=== PATIENT | male | born 1955 | race Caucasian/White ===

== ENCOUNTER 2021-06-24 09:24 | Outpatient (CLI) | payer OTHER | END 2021-06-24 09:35 | disposition home or self-care (01) | LOC: RAD 09:24 | DX: H25.10 Age-related nuclear cataract, unspecified eye (principal) ==

== ENCOUNTER 2021-06-29 16:52 | Inpatient (IN) | payer OTHER ==
[2021-06-29] MEDS ORDERED: GLIMEPIRIDE1 M1 (20:01)
[2021-06-29] MEDS ORDERED: GEMFIBROZIL600 MG (20:02)
[2021-06-29] MEDS ORDERED: ENALAPRIL MALEAT5 MG (20:02)
[2021-06-29] MEDS ORDERED: NASAL MIST126 ML (20:02)
== END 2021-06-30 04:29 | disposition left against medical advice (07) | DRG 683 ==
LOC: MEDJ 16:52
PROVIDERS: ADMIT Internal Medicine; ATTEND Internal Medicine
DX: N17.8 Other acute kidney failure (principal); I12.0 Hypertensive chronic kidney disease with stage 5 chronic kidney disease or end stage renal disease; I13.11 Hypertensive heart and chronic kidney disease without heart failure, with stage 5 chronic kidney disease, or end stage renal disease; D63.8 Anemia in other chronic diseases classified elsewhere; D69.49 Other primary thrombocytopenia; E11.69 Type 2 diabetes mellitus with other specified complication; E11.22 Type 2 diabetes mellitus with diabetic chronic kidney disease; I11.9 Hypertensive heart disease without heart failure; E87.5 Hyperkalemia; N18.5 Chronic kidney disease, stage 5; Z79.4 Long term (current) use of insulin; D63.1 Anemia in chronic kidney disease

== ENCOUNTER 2021-07-20 08:03 | Outpatient (CLI) | payer OTHER ==
[~2021-07-20 08:03] MED LIST: ENALAPRIL MALEAT5 MG; GEMFIBROZIL600 MG; GLIMEPIRIDE1 M1; NASAL MIST126 ML
== END 2021-07-20 08:08 | disposition home or self-care (01) ==
LOC: SONOGRAMA 08:03
PROVIDERS: ATTEND Specialist/Technologist, Other Nephrology
DX: R10.9 Unspecified abdominal pain (principal); R31.9 Hematuria, unspecified; N18.30 Chronic kidney disease, stage 3 unspecified

== ENCOUNTER 2021-08-12 07:06 | Outpatient (CLI) | payer OTHER | END 2021-08-12 07:07 | disposition home or self-care (01) | LOC: NUCLEAR 07:06 | PROVIDERS: ATTEND Internal Medicine Hematology & Oncology | DX: C80.0 Disseminated malignant neoplasm, unspecified (principal); R97.0 Elevated carcinoembryonic antigen [CEA]; R63.4 Abnormal weight loss; N18.5 Chronic kidney disease, stage 5; F17.210 Nicotine dependence, cigarettes, uncomplicated | CPT/HCPCS: 78812; A9552 ==

== ENCOUNTER 2021-09-13 17:38 | Inpatient (IN) | payer OTHER ==
[~2021-09-13] VITALS: Ht 152.4 cm; Wt 67.6 kg
[2021-09-13] MEDS ORDERED: CALPHRON667 MG (19:12)
[2021-09-13] MEDS ORDERED: INTEGRA PLUS C1 EACH (19:13)
[2021-09-13] MEDS ORDERED: AMLODIPINE 2.5 MG (19:14)
[2021-09-13] MEDS ORDERED: TAMS0.4C (19:14)
[2021-09-13] MEDS ORDERED: PROSCAR5 MG (19:15)
--- NOTE | 2021-09-13 19:16 | NUR ---
PTE SE RECIBE POR ANEMIA Y DEBILIDAD REFIERE PARAMEDICO Y FAMILIAR.
--- NOTE | 2021-09-13 21:48 | NUR ---
SE REALIZA CANALIZACION DE VENA A PACIENTE Y MUESTRAS DE CUATE POR ORDEN MEDICA.
--- NOTE | 2021-09-14 05:05 | NUR ---
SE REALIZA ASEO PERIANAL,PTE EVACUADO,SE CAMBIA PANAL Y ROPA DE CAMA.
--- NOTE | 2021-09-14 07:32 | NUR ---
PTE ALERTA Y ORIENTADA POR MAE ESFERAS CON BUEN PATRON RESPIRATORIO. SE ENCUENTRA EN LINDSAY BAJA, BARANDAS ELEVADAS Y FRENOS AJUSTADOS. TIENE CANALIZACION PATENTE GERARDO DE EDEMA Y ERITEMA CON IV FLUID ESTABLECIDO POR ORDEN MEDICA. PENDIENTE CONSULTA CON .
[2021-09-16] MEDS ORDERED: NORVASC2.5 MG (16:31)
[2021-09-16] MEDS ORDERED: DORZOLAMIDE HCL10 ML (16:32)
== END 2021-10-29 10:52 | disposition home or self-care (01) | DRG 682 ==
LOC: ER 17:38 → MEDI 09-14 15:44 → ICU 09-14 15:44 → SEC-K 09-14 15:44 → SURH 09-14 15:44 → MEDI 09-14 15:53 → SEC-K 09-14 16:09 → MEDI 09-14 18:46 → ICU 09-16 22:20 → SURH 10-06 17:49
PROVIDERS: ADMIT Internal Medicine; ATTEND Internal Medicine
PROC: 0BH17EZ Insertion of Endotracheal Airway into Trachea, Via Natural or Artificial Opening (ICD-10-PCS; principal; 2021-09-16)
PROC: 5A1955Z Respiratory Ventilation, Greater than 96 Consecutive Hours (ICD-10-PCS; 2021-09-16)
PROC: 4A12X4Z Monitoring of Cardiac Electrical Activity, External Approach (ICD-10-PCS; 2021-09-16)
PROC: B24BYZZ Ultrasonography of Heart with Aorta using Other Contrast (ICD-10-PCS; 2021-09-17)
PROC: 02HV33Z Insertion of Infusion Device into Superior Vena Cava, Percutaneous Approach (ICD-10-PCS; 2021-09-19)
PROC: 30243N1 Transfusion of Nonautologous Red Blood Cells into Central Vein, Percutaneous Approach (ICD-10-PCS; 2021-09-20)
PROC: 02H633Z Insertion of Infusion Device into Right Atrium, Percutaneous Approach (ICD-10-PCS; 2021-09-20)
PROC: 5A1D70Z Performance of Urinary Filtration, Intermittent, Less than 6 Hours Per Day (ICD-10-PCS; 2021-09-21)
PROC: 5A1D70Z Performance of Urinary Filtration, Intermittent, Less than 6 Hours Per Day (ICD-10-PCS; 2021-09-23)
PROC: 5A1D70Z Performance of Urinary Filtration, Intermittent, Less than 6 Hours Per Day (ICD-10-PCS; 2021-09-26)
PROC: 5A1D70Z Performance of Urinary Filtration, Intermittent, Less than 6 Hours Per Day (ICD-10-PCS; 2021-09-28)
PROC: 5A1D70Z Performance of Urinary Filtration, Intermittent, Less than 6 Hours Per Day (ICD-10-PCS; 2021-09-30)
PROC: 5A0945A Assistance with Respiratory Ventilation, 24-96 Consecutive Hours, High Flow/Velocity Cannula (ICD-10-PCS; 2021-10-01)
PROC: 5A1D70Z Performance of Urinary Filtration, Intermittent, Less than 6 Hours Per Day (ICD-10-PCS; 2021-10-03)
PROC: 5A1D70Z Performance of Urinary Filtration, Intermittent, Less than 6 Hours Per Day (ICD-10-PCS; 2021-10-05)
PROC: 5A1D70Z Performance of Urinary Filtration, Intermittent, Less than 6 Hours Per Day (ICD-10-PCS; 2021-10-07)
PROC: B54PZZZ Ultrasonography of Bilateral Upper Extremity Veins (ICD-10-PCS; 2021-10-11)
PROC: 02H633Z Insertion of Infusion Device into Right Atrium, Percutaneous Approach (ICD-10-PCS; 2021-10-12)
PROC: 5A1D70Z Performance of Urinary Filtration, Intermittent, Less than 6 Hours Per Day (ICD-10-PCS; 2021-10-13)
PROC: 5A1D70Z Performance of Urinary Filtration, Intermittent, Less than 6 Hours Per Day (ICD-10-PCS; 2021-10-17)
PROC: 5A1D70Z Performance of Urinary Filtration, Intermittent, Less than 6 Hours Per Day (ICD-10-PCS; 2021-10-19)
PROC: 5A1D70Z Performance of Urinary Filtration, Intermittent, Less than 6 Hours Per Day (ICD-10-PCS; 2021-10-22)
PROC: 5A1D70Z Performance of Urinary Filtration, Intermittent, Less than 6 Hours Per Day (ICD-10-PCS; 2021-10-24)
PROC: 5A1D70Z Performance of Urinary Filtration, Intermittent, Less than 6 Hours Per Day (ICD-10-PCS; 2021-10-26)
PROC: 5A1D70Z Performance of Urinary Filtration, Intermittent, Less than 6 Hours Per Day (ICD-10-PCS; 2021-10-28)
DX: N17.9 Acute kidney failure, unspecified (principal); J96.02 Acute respiratory failure with hypercapnia; I21.A1 Myocardial infarction type 2; A41.51 Sepsis due to Escherichia coli [E. coli]; R65.20 Severe sepsis without septic shock; B37.1 Pulmonary candidiasis; J10.08 Influenza due to other identified influenza virus with other specified pneumonia; J15.1 Pneumonia due to Pseudomonas; N39.0 Urinary tract infection, site not specified; T83.511A Infection and inflammatory reaction due to indwelling urethral catheter, initial encounter; N13.8 Other obstructive and reflux uropathy; Z16.29 Resistance to other single specified antibiotic; E87.4 Mixed disorder of acid-base balance; I12.0 Hypertensive chronic kidney disease with stage 5 chronic kidney disease or end stage renal disease; N18.6 End stage renal disease; E11.22 Type 2 diabetes mellitus with diabetic chronic kidney disease; D63.1 Anemia in chronic kidney disease; N40.1 Benign prostatic hyperplasia with lower urinary tract symptoms; E88.09 Other disorders of plasma-protein metabolism, not elsewhere classified; B96.20 Unspecified Escherichia coli [E. coli] as the cause of diseases classified elsewhere; B96.5 Pseudomonas (aeruginosa) (mallei) (pseudomallei) as the cause of diseases classified elsewhere; Z96.0 Presence of urogenital implants; Z79.84 Long term (current) use of oral hypoglycemic drugs

== ENCOUNTER 2021-11-19 09:53 | Emergency (ER) | payer OTHER ==
[~2021-11-19] VITALS: Ht 162.6 cm; Wt 56.7 kg
[~2021-11-19 09:53] MED LIST changes: +AMLODIPINE 2.5 MG; +CALPHRON667 MG; +DORZOLAMIDE HCL10 ML; +INTEGRA PLUS C1 EACH; +NORVASC2.5 MG; +PROSCAR5 MG; +TAMS0.4C
[2021-11-19] MEDS ORDERED: HYDRALAZINE HC100 MG (10:13)
[2021-11-19] MEDS ORDERED: LASIX40 MG (10:13)
[2021-11-19] MEDS ORDERED: TOPROL XL100 M1 (10:13)
[2021-11-19] MEDS ORDERED: CALPHRON667 MG (10:14)
[2021-11-19] MEDS ORDERED: ADALAT CC30 MG (10:14)
[2021-11-19] MEDS ORDERED: PEPCID AC20 MG (10:15)
[2021-11-19] MEDS ORDERED: ABANEU-SL TABL1 EACH (10:15)
[2021-11-19] MEDS ORDERED: ABATINEX680 MG (10:15)
== END 2021-11-19 17:00 | disposition home or self-care (01) ==
LOC: ER 09:53
DX: N30.90 Cystitis, unspecified without hematuria (principal); B96.5 Pseudomonas (aeruginosa) (mallei) (pseudomallei) as the cause of diseases classified elsewhere; E11.9 Type 2 diabetes mellitus without complications; Z79.84 Long term (current) use of oral hypoglycemic drugs; I10 Essential (primary) hypertension

== ENCOUNTER 2022-01-02 20:05 | Emergency (ER) | payer OTHER ==
[~2022-01-02] VITALS: Ht 172.7 cm; Wt 59.0 kg
[~2022-01-02 20:05] MED LIST changes: +ABANEU-SL TABL1 EACH; +ABATINEX680 MG; +ADALAT CC30 MG; +HYDRALAZINE HC100 MG; +LASIX40 MG; +PEPCID AC20 MG; +TOPROL XL100 M1
== END 2022-01-03 | disposition home or self-care (01) ==
LOC: ER 20:05
DX: T83.011A Breakdown (mechanical) of indwelling urethral catheter, initial encounter (principal); I10 Essential (primary) hypertension; N40.0 Benign prostatic hyperplasia without lower urinary tract symptoms

== ENCOUNTER 2022-04-02 21:56 | Inpatient (IN) | payer OTHER ==
[~2022-04-02] VITALS: Ht 167.6 cm; Wt 52.2 kg
[2022-04-04] MEDS ORDERED: TAMSULOSIN HCL0.4 MG (10:56)
== END 2022-04-10 17:23 | disposition home or self-care (01) | DRG 689 ==
LOC: ER 21:56 → SEC-K 04-03 11:15 → MEDJ 04-03 11:15
PROVIDERS: ADMIT Internal Medicine; ATTEND Internal Medicine
PROC: BW41ZZZ Ultrasonography of Abdomen and Pelvis (ICD-10-PCS; principal; 2022-04-03)
PROC: 5A1D70Z Performance of Urinary Filtration, Intermittent, Less than 6 Hours Per Day (ICD-10-PCS; 2022-04-03)
PROC: 5A1D70Z Performance of Urinary Filtration, Intermittent, Less than 6 Hours Per Day (ICD-10-PCS; 2022-04-07)
PROC: 5A1D70Z Performance of Urinary Filtration, Intermittent, Less than 6 Hours Per Day (ICD-10-PCS; 2022-04-10)
DX: N39.0 Urinary tract infection, site not specified (principal); N18.6 End stage renal disease; I13.11 Hypertensive heart and chronic kidney disease without heart failure, with stage 5 chronic kidney disease, or end stage renal disease; N17.9 Acute kidney failure, unspecified; B96.89 Other specified bacterial agents as the cause of diseases classified elsewhere; E11.22 Type 2 diabetes mellitus with diabetic chronic kidney disease; Z99.2 Dependence on renal dialysis; Z79.4 Long term (current) use of insulin; Z20.822 Contact with and (suspected) exposure to COVID-19; Z74.01 Bed confinement status; T83.011A Breakdown (mechanical) of indwelling urethral catheter, initial encounter; N40.1 Benign prostatic hyperplasia with lower urinary tract symptoms; N13.9 Obstructive and reflux uropathy, unspecified

== ENCOUNTER 2022-05-17 18:47 | Emergency (ER) | payer OTHER ==
[~2022-05-17] VITALS: Ht 177.8 cm; Wt 81.6 kg
[~2022-05-17 18:47] MED LIST changes: +TAMSULOSIN HCL0.4 MG
[2022-05-17] MEDS ORDERED: METFORMIN HCL500 M3 PO (18:59)
[2022-05-17] MEDS ORDERED: LEVOFLOXACIN750 MG PO (21:29)
[2022-05-17] MEDS ORDERED: BACTRIM DS TAB1 EACH PO (21:32)
== END 2022-05-17 22:44 | disposition home or self-care (01) ==
LOC: ER 18:47
DX: T83.098A Other mechanical complication of other urinary catheter, initial encounter (principal)

== ENCOUNTER 2022-08-20 07:45 | Emergency (ER) | payer OTHER ==
[~2022-08-20] VITALS: Ht 167.6 cm; Wt 54.4 kg
[~2022-08-20 07:45] MED LIST changes: +BACTRIM DS TAB1 EACH PO; +LEVOFLOXACIN750 MG PO; +METFORMIN HCL500 M3 PO
== END 2022-08-20 13:50 | disposition home or self-care (01) ==
LOC: ER 07:45
DX: N18.6 End stage renal disease (principal); I10 Essential (primary) hypertension; Z99.2 Dependence on renal dialysis

== ENCOUNTER 2023-04-16 21:47 | Inpatient (IN) | payer OTHER ==
[~2023-04-16] VITALS: Ht 167.6 cm; Wt 59.0 kg
[2023-04-17 00:38] LABS: PH,URINE 7.5 (5.0-8.0); URINE APPEARANCE Cloudy; URINE BILIRRUBIN Negative (NEGATIVE); URINE BLOOD Negative; URINE COLOR Yellow; URINE GLUCOSE Negative (NEGATIVE); URINE LEUKOCYTE Large; URINE NITRATE Negative; URINE UROBILINOGEN 0.2 E.U./dl
[2023-04-17 00:41] LABS: URINE EPITHELIAL CELLS 7.1 uL (0.0-38.8); URINE RBC 40.2 uL (0.0-20.8); URINE WBC 420.3 uL (0.0-23.2)
[2023-04-17 00:53] LABS: HEMATOCRIT 27.7 % (39.0-48.0); MEAN CELL VOLUME 96.2 fL (80.0-100.00); MEAN CORPUSCULAR HGB CONC 34.8 g/dl (32.0-36.0); RED BLOOD COUNT 2.88 M/uL (4.00-6.00); RED CELL DISTRIBUTION WIDTH 15.7 % (11.5-14.5)
[2023-04-17 01:22] LABS: INR 0.98; PARTIAL THROMBOPLASTIN TIME 30.5 SECONDS (22.0-34.0); PROTHROMBIN TIME 10.3 SECONDS (9.0-11.5)
[2023-04-17 01:27] LABS: HEMOGLOBIN 9.7 g/dL (13-16.00); MEAN CORPUSCULAR HEMOGLOBIN 33.6 pg (27.00-32.0); PLATELET COUNT 95 K/uL (150-450)
[2023-04-17 01:39] LABS: ABG PH 7.446 (7.35-7.45); ABG PO2 84.1 mmHg (80-100); ABG pCO2 34.9 mmHg (35-45); BASE EXCESS 0 mmol/l; BICARBONATE 23.5 mmol/l (23-25); SaO2 96.7 %; Tco2 24.6 mmol/l; allen test SATISFACTORY; o2 21 %; puncture site RADIAL RIGHT
[2023-04-17 01:55] LABS: URINE BACTERIA > 9821.5 uL (0.0-1933); URINE PROTEIN 100 (NEGATIVE)
[2023-04-17 01:59] LABS: ALBUMIN 3.5 gm/dL (3.4-5.0); BILIRUBIN TOTAL 0.7 mg/dL (0.3-1.2); GLOBULINA 4.2 G/DL (2.4-3.5); TOTAL PROTEIN 7.7 gm/dL (6.4-8.2)
[2023-04-17 02:07] LABS: GFR 7.79
[2023-04-17 02:09] LABS: CREATININE SERUM 7.06 mg/dL (0.70-1.30)
[2023-04-17 02:10] LABS: POTASSIUM 5.99 mEq/L (3.5-5.1)
[2023-04-18 06:24] LABS: MEAN CELL VOLUME 96.6 fL (80.0-100.00); MEAN CORPUSCULAR HGB CONC 34.8 g/dl (32.0-36.0); RED BLOOD COUNT 2.59 M/uL (4.00-6.00)
[2023-04-18 06:26] LABS: MEAN CORPUSCULAR HEMOGLOBIN 33.5 pg (27.00-32.0)
[2023-04-18 06:27] LABS: HEMOGLOBIN 8.7 g/dL (13-16.00); PLATELET COUNT 78 K/uL (150-450)
[2023-04-18 07:04] LABS: ALBUMIN 3.1 gm/dL (3.4-5.0); BILIRUBIN TOTAL 0.71 mg/dL (0.3-1.2); CALCIUM 9.2 mg/dL (8.5-10.1); GLOBULINA 3.6 G/DL (2.4-3.5); MAGNESIUM 2.1 mg/dL (1.8-2.4); PHOSPHOROUS 4.1 mg/dL (2.5-4.9); POTASSIUM 5.25 mEq/L (3.5-5.1); TOTAL PROTEIN 6.7 gm/dL (6.4-8.2)
[2023-04-18 07:35] LABS: GFR 6.74
[2023-04-18 07:36] LABS: C-REACTIVE PROTEIN 23.4 MG/DL (0.00-0.29)
[2023-04-19 07:02] LABS: PH,URINE 5.5 (5.0-8.0); URINE APPEARANCE Cloudy; URINE BILIRRUBIN Negative (NEGATIVE); URINE BLOOD Small; URINE COLOR Yellow; URINE GLUCOSE Negative (NEGATIVE); URINE LEUKOCYTE Moderate; URINE NITRATE Negative
[2023-04-19 07:06] LABS: URINE BACTERIA 525.3 uL (0.0-1933); URINE EPITHELIAL CELLS 19.7 uL (0.0-38.8); URINE RBC 9.3 uL (0.0-20.8); URINE WBC 557.5 uL (0.0-23.2)
[2023-04-19 07:46] LABS: URINE PROTEIN 100 (NEGATIVE)
[2023-04-19 07:49] LABS: URINE YEAST NEGATIVE /hpf
[2023-04-20 07:02] LABS: ALBUMIN 2.6 gm/dL (3.4-5.0); BILIRUBIN TOTAL 0.42 mg/dL (0.3-1.2); GLOBULINA 3.4 G/DL (2.4-3.5); PHOSPHOROUS 5.1 mg/dL (2.5-4.9); POTASSIUM 3.6 mEq/L (3.5-5.1)
[2023-04-20 08:02] LABS: C-REACTIVE PROTEIN 8.54 MG/DL (0.00-0.29); GFR 7.34
[2023-04-20 08:03] LABS: CREATININE SERUM 7.43 mg/dL (0.70-1.30)
[2023-04-20 12:17] LABS: MEAN CORPUSCULAR HGB CONC 34.5 g/dl (32.0-36.0); RED BLOOD COUNT 2.42 M/uL (4.00-6.00); RED CELL DISTRIBUTION WIDTH 15.4 % (11.5-14.5)
[2023-04-20 13:01] LABS: HEMATOCRIT 22.9 % (39.0-48.0); HEMOGLOBIN 7.9 g/dL (13-16.00); MEAN CORPUSCULAR HEMOGLOBIN 32.6 pg (27.00-32.0)
[2023-04-20 13:02] LABS: PLATELET COUNT 84 K/uL (150-450)
[2023-04-21 12:26] LABS: HEMATOCRIT 27.4 % (39.0-48.0); MEAN CELL VOLUME 91.9 fL (80.0-100.00); MEAN CORPUSCULAR HGB CONC 34.8 g/dl (32.0-36.0); RED BLOOD COUNT 2.98 M/uL (4.00-6.00); RED CELL DISTRIBUTION WIDTH 16.1 % (11.5-14.5)
[2023-04-21 13:15] LABS: MEAN CORPUSCULAR HEMOGLOBIN 31.8 pg (27.00-32.0); PLATELET COUNT 72 K/uL (150-450)
[2023-04-21 13:16] LABS: HEMOGLOBIN 9.5 g/dL (13-16.00)
[2023-04-24 06:59] LABS: HEMATOCRIT 26.1 % (39.0-48.0); HEMOGLOBIN 9.1 g/dL (13-16.00); MEAN CELL VOLUME 92.7 fL (80.0-100.00); MEAN CORPUSCULAR HEMOGLOBIN 32.3 pg (27.00-32.0); MEAN CORPUSCULAR HGB CONC 34.8 g/dl (32.0-36.0); RED BLOOD COUNT 2.82 M/uL (4.00-6.00); RED CELL DISTRIBUTION WIDTH 16.2 % (11.5-14.5)
[2023-04-24 07:16] LABS: PLATELET COUNT 94 K/uL (150-450)
[2023-04-24 07:19] LABS: ALBUMIN 2.7 gm/dL (3.4-5.0); CALCIUM 7.8 mg/dL (8.5-10.1); GFR 10.01; PHOSPHOROUS 3.9 mg/dL (2.5-4.9); POTASSIUM 3.57 mEq/L (3.5-5.1)
[2023-04-24 08:09] LABS: CREATININE SERUM 5.68 mg/dL (0.70-1.30)
== END 2023-04-25 14:13 | disposition home or self-care (01) | DRG 689 ==
LOC: ER 21:47 → MEDJ 04-17 09:34 → SEC-K 04-17 09:34 → MEDJ 04-17 10:14
PROVIDERS: General Practice; Internal Medicine Infectious Disease; Specialist/Technologist, Other Nephrology; ADMIT Internal Medicine; ATTEND Internal Medicine
PROC: BW28ZZZ Computerized Tomography (CT Scan) of Head (ICD-10-PCS; 2023-04-16)
PROC: 5A1D70Z Performance of Urinary Filtration, Intermittent, Less than 6 Hours Per Day (ICD-10-PCS; principal; 2023-04-18)
PROC: 5A1D70Z Performance of Urinary Filtration, Intermittent, Less than 6 Hours Per Day (ICD-10-PCS; 2023-04-20)
PROC: BW21ZZZ Computerized Tomography (CT Scan) of Abdomen and Pelvis (ICD-10-PCS; 2023-04-20)
PROC: 30233N1 Transfusion of Nonautologous Red Blood Cells into Peripheral Vein, Percutaneous Approach (ICD-10-PCS; 2023-04-20)
PROC: 5A1D70Z Performance of Urinary Filtration, Intermittent, Less than 6 Hours Per Day (ICD-10-PCS; 2023-04-23)
PROC: 5A1D70Z Performance of Urinary Filtration, Intermittent, Less than 6 Hours Per Day (ICD-10-PCS; 2023-04-25)
DX: N39.0 Urinary tract infection, site not specified (principal); A41.9 Sepsis, unspecified organism; N18.6 End stage renal disease; I12.0 Hypertensive chronic kidney disease with stage 5 chronic kidney disease or end stage renal disease; T85.618A Breakdown (mechanical) of other specified internal prosthetic devices, implants and grafts, initial encounter; T82.7XXA Infection and inflammatory reaction due to other cardiac and vascular devices, implants and grafts, initial encounter; E11.22 Type 2 diabetes mellitus with diabetic chronic kidney disease; D64.9 Anemia, unspecified; B96.20 Unspecified Escherichia coli [E. coli] as the cause of diseases classified elsewhere; Z99.2 Dependence on renal dialysis; E88.09 Other disorders of plasma-protein metabolism, not elsewhere classified; E83.39 Other disorders of phosphorus metabolism; Z74.01 Bed confinement status; Y65.8 Other specified misadventures during surgical and medical care; T83.018A Breakdown (mechanical) of other urinary catheter, initial encounter; R53.81 Other malaise

== ENCOUNTER 2023-11-05 12:37 | Outpatient (CLI) | payer OTHER | END 2023-11-05 12:48 | disposition home or self-care (01) | LOC: TOM 12:37 | PROVIDERS: ATTEND Internal Medicine | DX: G40.89 Other seizures (principal) ==

== ENCOUNTER 2024-05-20 11:16 | Inpatient (IN) | payer OTHER ==
[~2024-05-20] VITALS: Ht 152.4 cm; Wt 61.7 kg
--- NOTE | 2024-05-20 11:31 | NUR ---
SE RECIBE MASCULINO ALERTA Y ORIENTADO X3 QUIEN REFIERE MALESTAR GENERAL Y FIEBRE DESDE BEA. PACIENTE REFERIDO POR DR EVA MONROY. SE MIDEN S/V Y SE UBICA.
[2024-05-20] MEDS ORDERED: ACETAMINOPHEN 500 MG GEL..CAP PO ONE ×3 (14:00→19:34)
--- NOTE | 2024-05-20 14:20 | NUR ---
SE ORIENTA A PACIENTE SOBRE ORDENES MEDICAS. SE COLECTAN MUESTRAS DE LABORATORIO BAJO MEDIDAS ASEPTICAS.
[2024-05-20 14:37] LABS: HEMATOCRIT 31.5 % (39.0-48.0); HEMOGLOBIN 10.7 g/dL (13-16.00); MEAN CELL VOLUME 97.8 fL (80.0-100.00); MEAN CORPUSCULAR HEMOGLOBIN 33.3 pg (27.00-32.0); RED BLOOD COUNT 3.22 M/uL (4.00-6.00); RED CELL DISTRIBUTION WIDTH 13.5 % (11.5-14.5)
[2024-05-20 15:05] LABS: PLATELET COUNT 92 K/uL (150-450)
[2024-05-20 15:15] LABS: URINE APPEARANCE Cloudy; URINE BILIRRUBIN Negative (NEGATIVE); URINE BLOOD Negative; URINE COLOR Yellow; URINE EPITHELIAL CELLS 57.7 uL (0.0-38.8); URINE GLUCOSE Negative (NEGATIVE); URINE KETONE Negative (NEGATIVE); URINE LEUKOCYTE Moderate; URINE NITRATE Negative; URINE UROBILINOGEN 0.2 E.U./dl; URINE WBC 287.9 uL (0.0-23.2)
[2024-05-20 15:19] LABS: ALBUMIN 3.4 gm/dL (3.4-5.0); BILIRUBIN TOTAL 0.54 mg/dL (0.3-1.2); CALCIUM 9.1 mg/dL (8.5-10.1); GFR 6.39; MAGNESIUM 2.5 mg/dL (1.8-2.4); POTASSIUM 5.12 mEq/L (3.5-5.1); TOTAL PROTEIN 7.4 gm/dL (6.4-8.2)
[2024-05-20 16:01] LABS: URINE CAST 0.73 uL (0.0-1.40); URINE CRYSTALS MANY /HPF; URINE PROTEIN 100 (NEGATIVE)
[2024-05-20 16:03] LABS: CREATININE SERUM 8.36 mg/dL (0.70-1.30)
[2024-05-20] MEDS ORDERED: VANCOMYCIN HCL 1,000 MG VIAL IV ONE (16:30)
[2024-05-20] MEDS ORDERED: GENTAMICIN SULFATE 40 MG/ML VIAL IV ONE (16:30)
[2024-05-20] MEDS ORDERED: SODIUM CHLORIDE 0.45 % 1,000 ML IV SCH (18:00)
[2024-05-20] MEDS ORDERED: ACETAMINOPHEN 500 MG GEL..CAP PO PRN (18:15)
[2024-05-20] MEDS ORDERED: NIFEDIPINE 30 MG TAB.SA.OSM PO ONE (18:15)
[2024-05-20] MEDS ORDERED: VANCOMYCIN HCL 1,000 MG VIAL ONE (19:07)
[2024-05-20] MEDS ORDERED: GENTAMICIN SULFATE 40 MG/ML VIAL ONE (19:07)
[2024-05-20 19:24] LABS: INR 0.99; PARTIAL THROMBOPLASTIN TIME 32.2 SECONDS (22.0-34.0); PROTHROMBIN TIME 10.8 SECONDS (9.0-11.5)
[2024-05-20 19:44] VITALS: BP 117/87; O2SAT 100
[2024-05-20] MEDS ORDERED: HEPARIN SODIUM,PORCINE 1,000 UNITS/ML VIAL SPEPROC ONE (22:30)
[2024-05-20] MEDS ORDERED: NICOTINE 21MG/24HR PATCH.TD24 TD ONE (23:45)
[2024-05-21 01:52] VITALS: BP 180/76
[2024-05-21 08:33] VITALS: BP 131/76
[2024-05-21 08:35] VITALS: BP 173/75
[2024-05-21] MEDS ORDERED: FUROsemide 40 MG TABLET PO SCH (09:00)
[2024-05-21] MEDS ORDERED: METOPROLOL SUCCINATE 50 MG TAB.SR.24H PO SCH (09:00)
[2024-05-21] MEDS ORDERED: LevETIRAcetam 500 MG TAB. PO SCH (09:00)
[2024-05-21] MEDS ORDERED: CEFTRIAXONE SODIUM 2,000 MG in 0.9 % SODIUM CHLORIDE 100 ML IV SCH (09:00)
[2024-05-21] MEDS ORDERED: FAMOtidine 20 MG TABLET PO SCH (09:00)
[2024-05-21] MEDS ORDERED: Calcium Acetate 667 MG CAP PO SCH (09:00)
[2024-05-21] MEDS ORDERED: TAMSULOSIN HCL 0.4 MG CAP PO SCH (09:00)
[2024-05-21] MEDS ORDERED: NIFEDIPINE 30 MG TAB.SA.OSM PO SCH (09:00)
[2024-05-21] MEDS ORDERED: HEPARIN SODIUM,PORCINE 1,000 UNITS/ML VIAL IV SCH (09:00)
[2024-05-21] MEDS ORDERED: AMINO ACIDS/PROTEIN HYDROLYS 30 ML BLIST.PACK PO SCH (13:00)
[2024-05-21] MEDS ORDERED: AMIKACIN SULFATE 250 MG/ML (500MG) VIAL IV ONE (14:30)
[2024-05-21] MEDS ORDERED: HEPARIN SODIUM,PORCINE 5,000 UNITS/ML VIAL ONE (17:20)
[2024-05-21 17:28] VITALS: BP 142/66
[2024-05-21] MEDS ORDERED: HEPARIN SODIUM,PORCINE 5,000 UNITS/ML VIAL IV NR (17:30)
[2024-05-21] MEDS ORDERED: DEXTROSE 50 % IN WATER 0.5 G/ML DISP.SYRIN IV PRN (17:45)
[2024-05-21] MEDS ORDERED: INSULIN LISPRO 1,000 UNIT/10 ML UNITS SUBCUTANEO PRN (17:45)
[2024-05-21] MEDS ORDERED: AMIKACIN SULFATE 250 MG/ML (500MG) VIAL IV NR (19:00)
[2024-05-21] MEDS ORDERED: LevETIRAcetam 500 MG TAB. PO ONE (19:22)
[2024-05-21] MEDS ORDERED: LevETIRAcetam 500 MG TAB. PO NR (19:30)
[2024-05-21] MEDS ORDERED: MEROPENEM 500 MG/VIAL VIAL IV SCH (21:00)
[2024-05-22 00:25] VITALS: BP 135/64; O2SAT 99
[2024-05-22 04:56] LABS: HEMATOCRIT 27.7 % (39.0-48.0); RED BLOOD COUNT 2.91 M/uL (4.00-6.00); RED CELL DISTRIBUTION WIDTH 13.5 % (11.5-14.5)
[2024-05-22 04:58] LABS: HEMOGLOBIN 9.9 g/dL (13-16.00); PLATELET COUNT 82 K/uL (150-450)
[2024-05-22 05:37] LABS: ALBUMIN 3.1 gm/dL (3.4-5.0); BILIRUBIN TOTAL 0.41 mg/dL (0.3-1.2); CALCIUM 8.5 mg/dL (8.5-10.1); GLOBULINA 3.7 G/DL (2.4-3.5); MAGNESIUM 2.1 mg/dL (1.8-2.4); PHOSPHOROUS 3.9 mg/dL (2.5-4.9); POTASSIUM 4.58 mEq/L (3.5-5.1); TOTAL PROTEIN 6.8 gm/dL (6.4-8.2)
[2024-05-22 06:40] LABS: GFR 10.79
[2024-05-22 06:40] LABS: URINE APPEARANCE Turbid; URINE BILIRRUBIN Negative (NEGATIVE); URINE BLOOD Large; URINE COLOR Orange; URINE GLUCOSE Negative (NEGATIVE); URINE KETONE Trace (NEGATIVE); URINE LEUKOCYTE Large; URINE NITRATE Negative; URINE UROBILINOGEN 0.2 E.U./dl
[2024-05-22 06:42] LABS: URINE BACTERIA 1679.2 uL (0.0-1933); URINE CAST 2.65 uL (0.0-1.40); URINE EPITHELIAL CELLS 7.4 uL (0.0-38.8); URINE RBC 573.9 uL (0.0-20.8); URINE WBC 3591.8 uL (0.0-23.2)
[2024-05-22 06:42] LABS: CREATININE SERUM 5.31 mg/dL (0.70-1.30)
[2024-05-22 06:59] LABS: URINE PROTEIN 300 (NEGATIVE)
[2024-05-22 07:00] LABS: URINE CRYSTALS FEW /HPF
[2024-05-22 08:59] VITALS: BP 143/66; O2SAT 99
[2024-05-22 17:10] VITALS: BP 140/64
[2024-05-23 00:24] VITALS: BP 110/65
[2024-05-23 09:11] VITALS: BP 137/62; O2SAT 96
[2024-05-23 11:17] LABS: PH,URINE 7.5 (5.0-8.0); URINE APPEARANCE Clear; URINE BILIRRUBIN Negative (NEGATIVE); URINE BLOOD Negative; URINE COLOR Yellow; URINE GLUCOSE Negative (NEGATIVE); URINE KETONE Negative (NEGATIVE); URINE LEUKOCYTE Small; URINE NITRATE Negative
[2024-05-23 11:21] LABS: URINE EPITHELIAL CELLS 5.2 uL (0.0-38.8); URINE RBC 4.4 uL (0.0-20.8)
[2024-05-23 11:24] LABS: URINE CAST 0.73 uL (0.0-1.40); URINE PROTEIN 100 (NEGATIVE)
[2024-05-23 16:48] VITALS: BP 161/75; O2SAT 99
[2024-05-23] MEDS ORDERED: LevETIRAcetam 500 MG TAB. PO SCH (17:00)
[2024-05-23] MEDS ORDERED: HEPARIN SODIUM,PORCINE 5,000 UNITS/ML VIAL ONE (20:40)
[2024-05-24 02:04] VITALS: BP 138/65
[2024-05-24 08:08] VITALS: BP 155/73
[2024-05-24 17:28] VITALS: BP 155/65; O2SAT 97
[2024-05-25 02:00] VITALS: BP 156/75
[2024-05-25 07:44] LABS: HEMATOCRIT 29.4 % (39.0-48.0); HEMOGLOBIN 10.1 g/dL (13-16.00); MEAN CELL VOLUME 97.4 fL (80.0-100.00); MEAN CORPUSCULAR HEMOGLOBIN 33.5 pg (27.00-32.0); MEAN CORPUSCULAR HGB CONC 34.4 g/dl (32.0-36.0); RED BLOOD COUNT 3.02 M/uL (4.00-6.00); RED CELL DISTRIBUTION WIDTH 13.1 % (11.5-14.5)
[2024-05-25 07:51] VITALS: BP 151/68
[2024-05-25 08:03] LABS: PLATELET COUNT 95 K/uL (150-450)
[2024-05-25 08:12] LABS: ALBUMIN 3.1 gm/dL (3.4-5.0); BILIRUBIN TOTAL 0.44 mg/dL (0.3-1.2); CALCIUM 8.9 mg/dL (8.5-10.1); GFR 7.74; GLOBULINA 3.6 G/DL (2.4-3.5); MAGNESIUM 2.6 mg/dL (1.8-2.4); POTASSIUM 4.83 mEq/L (3.5-5.1); TOTAL PROTEIN 6.7 gm/dL (6.4-8.2)
[2024-05-25 08:33] LABS: CREATININE SERUM 7.08 mg/dL (0.70-1.30)
[2024-05-25 16:41] VITALS: BP 167/75; O2SAT 99
[2024-05-25] MEDS ORDERED: EPOETIN ALFA-EPBX 10,000 UNIT/ML VIAL (Retacrit) SUBCUTANEO SCH (17:00)
[2024-05-26 02:05] VITALS: BP 127/59
[2024-05-26 08:44] VITALS: BP 188/86
[2024-05-26] MEDS ORDERED: HEPARIN SODIUM,PORCINE 5,000 UNITS/ML VIAL ONE (15:43)
[2024-05-26 16:22] VITALS: BP 147/88; O2SAT 98
[2024-05-26] MEDS ORDERED: AMIKACIN SULFATE 250 MG/ML (500MG) VIAL IV NR (19:00)
== END 2024-05-26 18:44 | disposition home or self-care (01) | DRG 689 ==
LOC: ER 11:16 → MEDJ 19:22 → SEC-K 19:22 → MEDJ 20:41 → MEDI 05-21 16:11
PROVIDERS: Emergency Medicine; General Practice; Internal Medicine Infectious Disease; ADMIT Internal Medicine; ATTEND Internal Medicine
DX: N39.0 Urinary tract infection, site not specified (principal); N18.6 End stage renal disease; D69.6 Thrombocytopenia, unspecified; I11.9 Hypertensive heart disease without heart failure; E11.22 Type 2 diabetes mellitus with diabetic chronic kidney disease; Z99.2 Dependence on renal dialysis; E78.5 Hyperlipidemia, unspecified; Z97.8 Presence of other specified devices; Z79.4 Long term (current) use of insulin

== ENCOUNTER 2024-07-04 18:37 | Emergency (ER) | payer OTHER ==
[~2024-07-04] VITALS: Ht 165.1 cm; Wt 68.0 kg
[2024-07-04] MEDS ORDERED: LEVALBUTEROL HCL 1.25 MG/3 ML SOLUTION IH ONE ×2 (19:30→21:28)
[2024-07-04 20:13] LABS: HEMATOCRIT 33.3 % (39.0-48.0); HEMOGLOBIN 11.2 g/dL (13-16.00); MEAN CELL VOLUME 96.1 fL (80.0-100.00); MEAN CORPUSCULAR HEMOGLOBIN 32.4 pg (27.00-32.0); MEAN CORPUSCULAR HGB CONC 33.7 g/dl (32.0-36.0); PLATELET COUNT 80 K/uL (150-450); RED BLOOD COUNT 3.46 M/uL (4.00-6.00); RED CELL DISTRIBUTION WIDTH 14.4 % (11.5-14.5)
[2024-07-04 20:27] LABS: INR 1.02; PARTIAL THROMBOPLASTIN TIME 32.8 SECONDS (22.0-34.0); PROTHROMBIN TIME 11.1 SECONDS (9.0-11.5)
[2024-07-04 20:35] LABS: ALBUMIN 3.5 gm/dL (3.4-5.0); BILIRUBIN TOTAL 0.55 mg/dL (0.3-1.2); CALCIUM 9.2 mg/dL (8.5-10.1); GFR 10.86; GLOBULINA 4.2 G/DL (2.4-3.5); POTASSIUM 4.59 mEq/L (3.5-5.1); TOTAL PROTEIN 7.7 gm/dL (6.4-8.2)
[2024-07-04 20:38] LABS: CREATININE SERUM 5.28 mg/dL (0.70-1.30)
[2024-07-04 22:05] LABS: PH,URINE >= 9.0 (5.0-8.0); URINE APPEARANCE Turbid; URINE BILIRRUBIN Negative (NEGATIVE); URINE BLOOD Negative; URINE COLOR Yellow; URINE GLUCOSE Negative (NEGATIVE); URINE KETONE Negative (NEGATIVE); URINE LEUKOCYTE Large; URINE NITRATE Negative; URINE UROBILINOGEN 0.2 E.U./dl
[2024-07-04 22:09] LABS: URINE CAST 5.67 uL (0.0-1.40); URINE EPITHELIAL CELLS 57.1 uL (0.0-38.8); URINE RBC 9.4 uL (0.0-20.8); URINE WBC 158.9 uL (0.0-23.2)
[2024-07-04 22:11] LABS: URINE PROTEIN 300 (NEGATIVE)
[2024-07-04 22:12] LABS: URINE BACTERIA > 9821.5 uL (0.0-1933)
[2024-07-04 22:18] LABS: URINE CRYSTALS MODERATE /HPF
[2024-07-04] MEDS ORDERED: BACTRIM DS TAB1 EACH PO (23:04)
== END 2024-07-05 03:21 | disposition home or self-care (01) ==
LOC: ER 18:37
PROVIDERS: General Practice
DX: T83.511A Infection and inflammatory reaction due to indwelling urethral catheter, initial encounter (principal); N39.0 Urinary tract infection, site not specified; R06.02 Shortness of breath; R05.9 Cough, unspecified; Z20.822 Contact with and (suspected) exposure to COVID-19; I10 Essential (primary) hypertension; E11.9 Type 2 diabetes mellitus without complications

== ENCOUNTER 2024-11-28 13:10 | Outpatient (CLI) | payer OTHER | END 2024-11-28 13:14 | disposition home or self-care (01) | LOC: TOM 13:10 | PROVIDERS: ATTEND Internal Medicine | DX: R06.00 Dyspnea, unspecified (principal); F17.200 Nicotine dependence, unspecified, uncomplicated; J44.9 Chronic obstructive pulmonary disease, unspecified; J98.4 Other disorders of lung ==

== ENCOUNTER 2025-01-06 14:43 | Inpatient (IN) | payer OTHER ==
[~2025-01-06] VITALS: Ht 198.1 cm; Wt 72.6 kg
--- NOTE | 2025-01-06 15:09 | NUR ---
SE RECIBE PTE ALERTA Y ORIENTADO X 3 ESFERAS EN AMBULANCIA EN COMPANIA DE FAMILIAR QUIEN REFIERE DESDE ESTA MANANA PRESENTA ARDOR AL ORINAR,PRESION TATY PTE NO RECIBIO DIALISIS RICKY.CANALIZADO POR PARAMEDICOS EN ANTEBRAZO LT #22,ADMINISTRARON VASOTEC,SOLUMEDROL,BP MANUAL 150/80.
[2025-01-06 20:43] LABS: BASO % 0.0 % (0.1-1.2); EOS # 0.00 (0.04-0.54); EOS % 0.0 % (0.7-7.0); LYMPH # 0.24 (1.18-3.74); LYMPH % 6.5 % (19.3-53.1); MEAN PLATELET VOLUME 12.60 fl (9.4-12.4); MONO # 0.09 (0.24-0.82); MONO % 2.4 % (4.7-12.5); NEUT # 3.37 (1.56-6.13); NEUT % 90.6 % (34.0-71.1); RED CELL DISTRIBUTION WIDTH 12.3 % (11.6-14.4)
--- NOTE | 2025-01-06 20:55 | NUR ---
SE ORIENTA A PACIENTE SOBRE TX MEDICO, REFIERE ENTENDER. SE REALIZAN MUESTRAS DE LABORATORIO BAJO MEDIDAS ASEPTICAS. SE COORDINA JENNIFER X. SE REALIZA EKG. SE COLECTA MUESTRA DE U/A Y U/C DE LA SONDA URINARIA.
[2025-01-06 21:53] LABS: INR 1.03
[2025-01-06 21:57] LABS: URINE APPEARANCE Cloudy; URINE BILIRRUBIN Negative (NEGATIVE); URINE BLOOD Negative; URINE COLOR Yellow; URINE KETONE Trace (NEGATIVE); URINE LEUKOCYTE Large; URINE NITRATE Negative; URINE UROBILINOGEN 0.2 E.U./dl
[2025-01-06 21:58] LABS: URINE CAST 5.42 uL (0.0-1.40); URINE EPITHELIAL CELLS 15.8 uL (0.0-38.8); URINE RBC 17.5 uL (0.0-20.8)
[2025-01-06 22:06] LABS: URINE BACTERIA > 9821.5 uL (0.0-1933); URINE GLUCOSE 100 MG/DL (NEGATIVE); URINE PROTEIN 100 (NEGATIVE)
[2025-01-06 22:11] LABS: ALT/SGPT 40.0 U/L (12-78); AST/SGOT 18.0 U/L (15-37); BILIRUBIN TOTAL 0.4 mg/dL (0.3-1.2); BUN CREA RATIO 7.0 (7.0-25.0); GFR 6.18; GLOBULINA 4.3 G/DL (2.4-3.5)
[2025-01-06 22:12] LABS: TYPE CELLS SQUAMOUS
[2025-01-06 22:13] LABS: URINE WBC 727.0 uL (0.0-23.2)
[2025-01-06 22:14] LABS: GLUCOSE FASTING 249.0 mg/dL (65-100); OSMOLALITY SERUM 300.0 MOSM/KG (275-295)
[2025-01-06 22:20] LABS: CREATININE SERUM 8.6 mg/dL (0.70-1.30)
[2025-01-06] MEDS ORDERED: TAMSULOSIN HCL 0.4 MG CAP PO SCH (23:49)
[2025-01-06] MEDS ORDERED: CEFTRIAXONE SODIUM 2,000 MG in 0.9 % SODIUM CHLORIDE 100 ML IV SCH (23:49)
[2025-01-06] MEDS ORDERED: LevETIRAcetam 500 MG TAB. PO SCH (23:49)
[2025-01-06] MEDS ORDERED: ACETAMINOPHEN 325 MG TABLET PO SCH (23:50)
[2025-01-06] MEDS ORDERED: NIFEDIPINE 30 MG TAB.SA.OSM PO SCH (23:50)
[2025-01-07] MEDS ORDERED: INSULIN LISPRO 1,000 UNIT/10 ML UNITS SUBCUTANEO PRN (00:15)
[2025-01-07] MEDS ORDERED: DEXTROSE 50 % IN WATER 0.5 G/ML DISP.SYRIN IV PRN (00:15)
[2025-01-07] MEDS ORDERED: SODIUM CHLORIDE 0.45 % 1,000 ML IV SCH (00:15)
[2025-01-07 01:41] VITALS: BP 130/78
[2025-01-07 01:49] VITALS: BP 130/78; O2SAT 98
[2025-01-07] MEDS ORDERED: TAMSULOSIN HCL 0.4 MG CAP PO ONE (02:25)
[2025-01-07] MEDS ORDERED: ACETAMINOPHEN 500 MG GEL..CAP PO ONE (02:25)
[2025-01-07] MEDS ORDERED: CEFTRIAXONE SODIUM 2,000 MG VIAL ONE ×2 (02:26→04:01)
[2025-01-07 07:48] VITALS: BP 143/56; O2SAT 100
[2025-01-07] MEDS ORDERED: ACETAMINOPHEN 500 MG GEL..CAP PO SCH (08:00)
[2025-01-07] MEDS ORDERED: HEPARIN SODIUM,PORCINE 1,000 UNITS/ML VIAL SPEPROC NR (16:00)
[2025-01-07] MEDS ORDERED: HEPARIN SODIUM,PORCINE 1,000 UNITS/ML VIAL IV SCH (16:00)
[2025-01-07] MEDS ORDERED: GENTAMICIN SULFATE 40 MG/ML VIAL IV NR (16:00)
[2025-01-07] MEDS ORDERED: CYANOCOBALAMIN (VITAMIN B-12) 1,000 MCG/ML VIAL IM SCH (17:00)
[2025-01-07] MEDS ORDERED: MEROPENEM 500 MG/VIAL VIAL IV SCH (17:00)
[2025-01-07] MEDS ORDERED: FOLIC ACID 1 MG TABLET PO SCH (17:00)
[2025-01-07] MEDS ORDERED: LACTOBACILLUS ACIDOPHILUS 1 CAP CAP PO SCH (17:00)
[2025-01-07 17:04] VITALS: BP 123/66; O2SAT 98
[2025-01-08 03:04] VITALS: BP 125/54; O2SAT 98
[2025-01-08 07:18] LABS: ALT/SGPT 22 U/L (12-78); BILIRUBIN TOTAL 0.41 mg/dL (0.3-1.2); GLOBULINA 3.6 G/DL (2.4-3.5); GLUCOSE FASTING 189 mg/dL (65-100); OSMOLALITY SERUM 306 MOSM/KG (275-295)
[2025-01-08 07:35] LABS: BUN CREA RATIO 7 (7.0-25.0); GFR 5.44
[2025-01-08 07:37] LABS: AST/SGOT < 3 U/L (15-37); CREATININE SERUM 9.61 mg/dL (0.70-1.30)
[2025-01-08 08:52] VITALS: BP 138/62; O2SAT 96
[2025-01-08] MEDS ORDERED: CEFTRIAXONE SODIUM 2,000 MG in 0.9 % SODIUM CHLORIDE 100 ML IV SCH (09:00)
[2025-01-08] MEDS ORDERED: AMINO ACIDS/PROTEIN HYDROLYS 30 ML BLIST.PACK PO SCH (13:00)
[2025-01-08 17:48] VITALS: BP 110/50; O2SAT 98
[2025-01-09 02:54] VITALS: BP 156/66
[2025-01-09 05:43] LABS: BASO % 0.3 % (0.1-1.2); EOS # 0.03 (0.04-0.54); EOS % 0.8 % (0.7-7.0); LYMPH # 0.78 (1.18-3.74); LYMPH % 21.4 % (19.3-53.1); MEAN PLATELET VOLUME 11.30 fl (9.4-12.4); MONO # 0.59 (0.24-0.82); NEUT # 2.23 (1.56-6.13); NEUT % 61.0 % (34.0-71.1); RED CELL DISTRIBUTION WIDTH 12.3 % (11.6-14.4)
[2025-01-09 05:45] LABS: MONO % 16.2 % (4.7-12.5)
[2025-01-09 09:14] VITALS: BP 177/70; O2SAT 97
[2025-01-09 13:01] VITALS: BP 150/76
[2025-01-09 15:19] LABS: URINE APPEARANCE Cloudy; URINE BILIRRUBIN Negative (NEGATIVE); URINE BLOOD Negative; URINE COLOR Yellow; URINE GLUCOSE Negative (NEGATIVE); URINE KETONE Negative (NEGATIVE); URINE LEUKOCYTE Moderate; URINE NITRATE Negative; URINE PROTEIN 30 (NEGATIVE); URINE UROBILINOGEN 0.2 E.U./dl
[2025-01-09 15:20] LABS: URINE BACTERIA 1228.7 uL (0.0-1933); URINE EPITHELIAL CELLS 6.9 uL (0.0-38.8); URINE RBC 22.4 uL (0.0-20.8); URINE WBC 73.8 uL (0.0-23.2)
[2025-01-09 15:34] LABS: URINE CAST 0.43 uL (0.0-1.40); URINE CRYSTALS FEW /HPF
[2025-01-09] MEDS ORDERED: GENTAMICIN SULFATE 40 MG/ML VIAL IV SCH (18:00)
[2025-01-09 18:13] VITALS: BP 160/78; O2SAT 100
[2025-01-09] MEDS ORDERED: EPOETIN ALFA-EPBX 10,000 UNIT/ML VIAL (Retacrit) SUBCUTANEO NR (18:45)
[2025-01-10 03:35] VITALS: BP 117/65; O2SAT 94
[2025-01-10 09:14] VITALS: BP 165/74
[2025-01-10 16:21] VITALS: BP 106/62; O2SAT 97
[2025-01-11 05:43] VITALS: BP 120/57; O2SAT 97
[2025-01-11 08:22] LABS: BASO % 0.7 % (0.1-1.2); RED CELL DISTRIBUTION WIDTH 11.9 % (11.6-14.4)
[2025-01-11 08:33] LABS: EOS # 0.10 (0.04-0.54); EOS % 3.6 % (0.7-7.0); LYMPH # 0.84 (1.18-3.74); LYMPH % 29.9 % (19.3-53.1); MEAN PLATELET VOLUME 11.20 fl (9.4-12.4); MONO # 0.39 (0.24-0.82); NEUT # 1.45 (1.56-6.13); NEUT % 51.5 % (34.0-71.1)
[2025-01-11 08:44] LABS: ALT/SGPT 22.0 U/L (12-78); AST/SGOT 16.0 U/L (15-37); BILIRUBIN TOTAL 0.45 mg/dL (0.3-1.2); BUN CREA RATIO 6.0 (7.0-25.0); GFR 13.3; GLOBULINA 3.4 G/DL (2.4-3.5); GLUCOSE FASTING 83.0 mg/dL (65-100); OSMOLALITY SERUM 280.0 MOSM/KG (275-295)
[2025-01-11 08:46] LABS: MONO % 13.9 % (4.7-12.5)
[2025-01-11] MEDS ORDERED: PANTOPRAZOLE SODIUM 40 MG TABLET.DR PO SCH (09:00)
[2025-01-11 09:39] LABS: CREATININE SERUM 4.43 mg/dL (0.70-1.30)
[2025-01-11 10:07] VITALS: BP 161/72
[2025-01-11] MEDS ORDERED: NIFEDIPINE 30 MG TAB.SA.OSM PO SCH (17:00)
[2025-01-11 18:33] VITALS: BP 139/68
[2025-01-12 00:57] VITALS: BP 120/52; O2SAT 98
[2025-01-12 08:00] VITALS: BP 134/64; O2SAT 100
[2025-01-12] MEDS ORDERED: EPOETIN ALFA-EPBX 10,000 UNIT/ML VIAL (Retacrit) SUBCUTANEO SCH (09:00)
[2025-01-12 21:27] VITALS: BP 166/75
[2025-01-13 01:46] VITALS: BP 111/62; O2SAT 96
[2025-01-13 06:44] LABS: BASO % 0.3 % (0.1-1.2); EOS # 0.10 (0.04-0.54); EOS % 3.1 % (0.7-7.0); LYMPH # 0.74 (1.18-3.74); LYMPH % 22.6 % (19.3-53.1); MEAN PLATELET VOLUME 10.80 fl (9.4-12.4); MONO # 0.46 (0.24-0.82); NEUT # 1.95 (1.56-6.13); NEUT % 59.6 % (34.0-71.1); RED CELL DISTRIBUTION WIDTH 11.9 % (11.6-14.4)
[2025-01-13 06:56] LABS: MONO % 14.1 % (4.7-12.5)
[2025-01-13 07:31] LABS: BUN CREA RATIO 7.0 (7.0-25.0); GFR 7.41; GLUCOSE FASTING 108.0 mg/dL (65-100); OSMOLALITY SERUM 295.0 MOSM/KG (275-295)
[2025-01-13 07:39] LABS: CREATININE SERUM 7.35 mg/dL (0.70-1.30)
[2025-01-13 09:15] VITALS: BP 129/48; O2SAT 99
[2025-01-13] MEDS ORDERED: HEPARIN SODIUM,PORCINE 5,000 UNITS/ML VIAL ONE (12:54)
[2025-01-13] MEDS ORDERED: HEPARIN SODIUM,PORCINE 5,000 UNITS/ML VIAL SPEPROC PRN (13:15)
[2025-01-13 17:24] VITALS: BP 163/65
[2025-01-14 02:59] VITALS: BP 139/69; O2SAT 100
[2025-01-14] MEDS ORDERED: INTESTINEX680 M1 PO (09:18)
[2025-01-14 10:05] VITALS: BP 186/70; O2SAT 99
== END 2025-01-14 13:40 | disposition home or self-care (01) | DRG 689 ==
LOC: ER 14:43 → SEC-K 23:45 → MEDI 01-07 13:59
PROVIDERS: Internal Medicine; Internal Medicine Infectious Disease; ADMIT Internal Medicine; ATTEND Internal Medicine
PROC: B246ZZZ Ultrasonography of Right and Left Heart (ICD-10-PCS; 2025-01-07)
PROC: 8E0ZXY6 Isolation (ICD-10-PCS; 2025-01-07)
PROC: 5A1D70Z Performance of Urinary Filtration, Intermittent, Less than 6 Hours Per Day (ICD-10-PCS; 2025-01-08)
PROC: 5A1D70Z Performance of Urinary Filtration, Intermittent, Less than 6 Hours Per Day (ICD-10-PCS; 2025-01-10)
PROC: 5A1D70Z Performance of Urinary Filtration, Intermittent, Less than 6 Hours Per Day (ICD-10-PCS; principal; 2025-01-13)
DX: N39.0 Urinary tract infection, site not specified (principal); N18.6 End stage renal disease; D61.818 Other pancytopenia; Z16.24 Resistance to multiple antibiotics; I13.11 Hypertensive heart and chronic kidney disease without heart failure, with stage 5 chronic kidney disease, or end stage renal disease; T83.511A Infection and inflammatory reaction due to indwelling urethral catheter, initial encounter; I25.10 Atherosclerotic heart disease of native coronary artery without angina pectoris; E11.22 Type 2 diabetes mellitus with diabetic chronic kidney disease; D63.1 Anemia in chronic kidney disease; E88.09 Other disorders of plasma-protein metabolism, not elsewhere classified; E78.5 Hyperlipidemia, unspecified; G40.909 Epilepsy, unspecified, not intractable, without status epilepticus; D69.59 Other secondary thrombocytopenia; Z74.01 Bed confinement status; Z99.2 Dependence on renal dialysis; Z79.84 Long term (current) use of oral hypoglycemic drugs; B96.20 Unspecified Escherichia coli [E. coli] as the cause of diseases classified elsewhere; Y73.1 Therapeutic (nonsurgical) and rehabilitative gastroenterology and urology devices associated with adverse incidents